=== PATIENT | female | born 2000 | race Caucasian/White ===

== ENCOUNTER 2019-10-18 20:51 | Emergency (ER) | payer BC ==
[2019-10-18 22:02] LABS: BLOOD UREA NITROGEN,BUN 10 mg/dL (7.0-18.0); CARBON DIOXIDE,CO2 20.8 mmol/L (21.0-32.0); CHLORIDE,CL 103 mmol/L (98-107); GLUCOSE RANDOM 214 mg/dL (74-106); POTASSIUM,K 4.3 mmol/L (3.5-5.1); SODIUM,NA 139 mmol/L (136-145)
--- NOTE | 2019-10-18 23:05 | CT ---
INDICATION: Headache TECHNIQUE: CT head without contrast. COMPARISON: None. FINDINGS: CSF spaces: Within normal limits for age. Brain parenchyma: The sanders-white differentiation is normal. No sign of mass, hemorrhage, or midline shift. Skull base and calvarium: The visualized paranasal sinuses and mastoid air cells demonstrate no acute or significant findings. The visualized orbits are grossly unremarkable. No skull fractures. IMPRESSION: Unremarkable noncontrast head CT. Please note that all CT scans at this facility use dose modulation, iterative reconstruction, and/or weight-based dosing when appropriate to reduce radiation dose to as low as reasonably achievable. Dictated by Ken Angel MD @ Oct 18 2019 11:02PM Signed by Dr. Ken Angel @ Oct 18 2019 11:04PM
--- NOTE | 2019-10-18 23:22 | EDM.PDOC ---
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 Patient states that her breasts have been expressing fluid and her mother told her that she might have an ectopic . Patient has had negative test within the last 24 hours. Patient has a chronic gastritis. Onset: Today Duration: Day(s):, Intermittent Location: Reports: Other (Patient states that she has breast discharge history of reflux) Quality: Reports: Ache Severity: Mild Improves with: Reports: None Worsens with: Reports: None Associated Symptoms: Reports: No Other Symptoms Lower Abdomen Pain Score (Numeric/FACES): 5 - Related Data Allergies Allergy/AdvReac Type Severity Reaction Status Date / Time amoxicillin Allergy Hives Verified 10/18/19 21:13 Home Meds: Home Meds Insulin Aspart (Niacinamide) [Fiasp Penfill 100 Unit/ml Cart] 100 units SQ DAILY 10/18/19 [History] Insulin Degludec [Tresiba] 100 units SQ DAILY 10/18/19 [History] Lisinopril [Zestril] 2.5 mg PO DAILY 10/18/19 [History] Metoclopramide HCl 10 mg PO DAILY 10/18/19 [History] atorvaSTATin Calcium [Atorvastatin Calcium] 40 mg PO DAILY 10/18/19 [History] Past Medical History Gastrointestinal History: Reports: Other (See Below) Other Gastrointestinal History: gastorparesis Endocrine/Metabolic History: Reports: Diabetes, Type I - Past Surgical History GI Surgical History: Reports: None Social & Family History - Family History Family Medical History: Noncontributory - Tobacco Use Smoking Status *Q: Never Smoker Second Hand Smoke Exposure: No - Caffeine Use Caffeine Use: Reports: Coffee - Recreational Drug Use Recreational Drug Use: No ED ROS GENERAL - Review of Systems Review Of Systems: See Below Constitutional: Reports: No Symptoms HEENT: Reports: No Symptoms Respiratory: Reports: No Symptoms Cardiovascular: Reports: No Symptoms Endocrine: Reports: No Symptoms GI/Abdominal: Reports: No Symptoms, Other (Reflux) : Reports: No Symptoms Musculoskeletal: Reports: No Symptoms Skin: Reports: No Symptoms Neurological: Reports: No Symptoms Psychiatric: Reports: No Symptoms Hematologic/Lymphatic: Reports: No Symptoms Immunologic: Reports: No Symptoms Free Text/Narrative/Comment: History of breast discharge ED EXAM, GI/ABD - Physical Exam Exam: See Below Exam Limited By: No Limitations General Appearance: Alert, WD/WN, No Apparent Distress Eyes: Bilateral: Normal Appearance Ears: Normal External Exam, Normal Canal, Hearing Grossly Normal, Normal TMs Nose: Normal Inspection, Normal Mucosa Throat/Mouth: Normal Inspection, Normal Lips Head: Atraumatic, Normocephalic Neck: Normal Inspection, Supple, Non-Tender Respiratory/Chest: No Respiratory Distress, Lungs Clear, Normal Breath Sounds, No Accessory Muscle Use, Chest Non-Tender Cardiovascular: Normal Peripheral Pulses, Regular Rate, Rhythm GI/Abdominal Exam: Normal Bowel Sounds, Soft, Non-Tender, No Distention Neurological: Alert, Oriented, CN II-XII Intact, Normal Reflexes Psychiatric: Normal Affect, Normal Mood Skin Exam: Warm, Dry, Intact Lymphatic: No Adenopathy Course - Vital Signs Text/Narrative:: She presented to the emergency room with a history of discharge from her breast thinking she had an ectopic . On exam patient had no evidence of discharge when she expressed her breast. Patient had no abdominal pain on exam no pelvic pain on exam. CT scan of the head was performed to rule out possible pituitary tumor was negative patient's labs were normal. She will be discharged home to follow-up with her primary care physician instructed to remain on her medications for reflux and to follow with her primary care physician. That was positive patient did have a leukocytosis of 16,000 unknown reason why. Last Recorded V/S: Last Vital Signs Temp 97.4 F 10/18/19 21:19 Pulse 88 10/18/19 21:19 Resp 18 10/18/19 21: BP 144/97 H 10/18/19 21: Pulse Ox 97 10/18/19 21:19 - Orders/Labs/Meds Labs: Laboratory Tests 10/18/19 10/18/19 10/18/19 Range/Units 21:30 21:30 21:35 WBC 16.49 H (4.0-11.0) K/uL RBC 4.96 (4.30-5.90) M/uL Hgb 14.0 (12.0-16.0) g/dL Hct 43.4 (36.0-46.0) % MCV 87.5 (80.0-98.0) fL MCH 28.2 (27.0-32.0) pg MCHC 32.3 (31.0-37.0) g/dL RDW Std Deviation 39.5 (28.0-62.0) fl RDW Coeff of Vamsi 12 (11.0-15.0) % Plt Count 272 (150-400) K/uL MPV 11.50 (7.40-12.00) fL Nucleated RBC % 0.0 /100WBC Nucleated RBCs # 0 K/uL Sodium 139 (136-145) mmol/L Potassium 4.3 (3.5-5.1) mmol/L Chloride 103 (98-107) mmol/L Carbon Dioxide 20.8 L (21.0-32.0) mmol/L BUN 10 (7.0-18.0) mg/dL Creatinine 0.6 (0.6-1.0) mg/dL Est Cr Clr Drug Dosing 107.43 mL/min Estimated GFR (MDRD) > 60.0 ml/min Glucose 214 H (74-106) mg/dL Calcium 9.1 (8.5-10.1) mg/dL Total Bilirubin 0.5 (0.2-1.0) mg/dL AST 26 (15-37) IU/L ALT 28 (14-63) IU/L Alkaline Phosphatase 113 (46-116) U/L Total Protein 7.4 (6.4-8.2) g/dL Albumin 3.8 (3.4-5.0) g/dL Globulin 3.6 (2.6-4.0) g/dL Albumin/Globulin Ratio 1.1 (0.9-1.6) Urine HCG, Qual NEGATIVE (NEGATIVE) Departure - Departure Time of Disposition: 23:28 Disposition: Home, Self-Care 01 Condition: Good Clinical Impression: Leukocytosis, unspecified - Discharge Information Additional Instructions: 1. Patient is to follow-up with her primary care physician. Return to the emergency room any severe pain. Patient informed that she does not have an ectopic . Sepsis Event Note - Evaluation Sepsis Screening Result: No Definite Risk - Focused Exam Vital Signs: Vital Signs Temp Pulse Resp BP Pulse Ox 10/18/19 21:19 97.4 F 88 18 144/97 H 97 Date Exam was Performed: 10/18/19 Time Exam was Performed: 23:17
== END 2019-10-18 23:39 | disposition home or self-care (01) ==
LOC: MW.ED 20:51
DX: D72.829 Elevated white blood cell count, unspecified (principal); E10.10 Type 1 diabetes mellitus with ketoacidosis without coma; Z79.899 Other long term (current) drug therapy; Z88.0 Allergy status to penicillin
CPT/HCPCS: 36415; 70450; 70450-26; 80053; 81025; 85027; 99282; 99284-25

== ENCOUNTER 2021-07-16 06:16 | Inpatient (IN) | payer BC ==
[2021-07-16] MEDS ORDERED: Butorphanol 1 MG/ML SDV IVPUSH PRN (07:01)
[2021-07-16] MEDS ORDERED: Methylergonovine 0.2 MG/1 ML Amp IM PRN (07:01)
[2021-07-16] MEDS ORDERED: Water For Irrigation,Sterile 1,000 ML Container IRR PRN (07:01)
[2021-07-16] MEDS ORDERED: Tranexamic Acid 1,000 MG in Sodium Chloride 0.9% 100 ML IV PRN (07:01)
[2021-07-16] MEDS ORDERED: Carboprost Tromethamine 250 MCG/1 ML Amp IM PRN (07:01)
[2021-07-16] MEDS ORDERED: Sodium Chloride 0.9% 2.5 ML Syringe FLUSH PRN (07:01)
[2021-07-16] MEDS ORDERED: Sodium Chloride 0.9% 20 ML SDV IV PRN (07:01)
[2021-07-16] MEDS ORDERED: Sodium Chloride 0.9% 10 ML Syringe FLUSH PRN (07:01)
[2021-07-16] MEDS ORDERED: Misoprostol 200 MCG Tab PO PRN (07:01)
[2021-07-16] MEDS ORDERED: Nalbuphine 10 MG/1 ML Vial IVPUSH PRN (07:01)
[2021-07-16] MEDS ORDERED: Lidocaine 1% 50 ML MDV INJECT PRN (07:01)
[2021-07-16] MEDS ORDERED: Morphine 4 MG/ML VIAL IVPUSH ONE (07:05)
[2021-07-16] MEDS ORDERED: Oxytocin/0.9 % Sodium Chloride 30 UNIT/500 ML BAG IV SCH (07:15)
[2021-07-16] MEDS ORDERED: Lactated Ringers 1,000 ML IV SCH (07:15)
[2021-07-16] MEDS ORDERED: Lidocaine 1% 20 ML MDV ONE ×2 (07:32→18:14)
[2021-07-16] MEDS ORDERED: Acetaminophen 500 MG Tab PO PRN (08:25)
[2021-07-16] MEDS ORDERED: Bisacodyl 10 MG Supp RECTAL PRN (08:25)
[2021-07-16] MEDS ORDERED: Benzocaine/Menthol 20%-0.5% Spray 78 GM Cannister TOP PRN (08:25)
[2021-07-16] MEDS ORDERED: Witch Hazel Medicated Pads 40/Jar TOP PRN (08:25)
[2021-07-16] MEDS ORDERED: Ibuprofen 400 MG Tab PO PRN (08:25)
[2021-07-16] MEDS ORDERED: Docusate Sodium 100 MG Cap PO PRN (08:25)
[2021-07-16] MEDS ORDERED: Lanolin 100% Cream 7 GM Tube TOP PRN (08:25)
[2021-07-16] MEDS ORDERED: oxyCODONE 5 MG Tab PO PRN (08:25)
--- NOTE | 2021-07-16 08:32 | PCM.LDHP ---
L&D History of Present Illness - General Date of Service: 07/16/21 Admit Problem/Dx: Patient Status Order with Admit Dx/Problem 07/16/21 07:01 Patient Status [ADT] Routine 07/16/21 08:25 Patient Status [ADT] Routine Admission Diagnosis/Problem Admission Diagnosis/Problem Source of Information: Patient History Limitations: Reports: No Limitations - History of Present Illness Introduction:: 21 year old G1 now P1 female presented to Labor and Delivery by EMS at 0640 after delivering at home at 32w6d gestation. Patient had previously presented to Labor and Delivery on the evening of 07/15/2021 with nausea/vomiting and irregular contractions. Her EDC was 09/04/2021. FHTs were category 1 and her tocomotor showed irritability. A sterile speculum exam was performed with no abnormal findings. FFN and Affirm vaginal swabs were obtained and resulted negative. Cervical exam was performed and cervix noted to be closed, thick and high. Urine analysis was also obtained and was negative for infection. She received IVF, Zofran and PO Vistiril. After a period of observation, the patient's symptoms improved and she was discharged to home in stable condition with labor precautions. At about 0530 this morning the patient called Labor and Delivery stating that her pelvic pain was increasing and she was getting into the bathtub. Per the patient, she continued to feel increased pressure and had a strong contraction at about 0615. Her infant delivered in the tub about one minute later. The patient called EMS who arrived shortly thereafter. States that her placenta delivered spontaneously about 5 minutes after the was born. Per EMS, initial score was 5, improved on arrival to nursery and was evaluated by senior business analyst. weight is 2580 grams. The is stable and will be transferred to [facility] for NICU admission. Patient received 30mg of IV Pitocin upon arrival to labor and delivery along with 4mg IV morphine for pain control. Perineal inspection was performed and a 1st degree perineal laceration was noted with brisk bleeding at the site. This was repair with 2-0 Vicryl. Weighed blood loss from the time of EMS transfer to evaluation on labor and delivery was 680cc. Placenta was evaluated and appears intake. Will be sent to pathology for further evaluation. The was complicated by Type 1 DM. Patient has been taking 28u of Tresiba at night and Fiasp with meals. Last blood glucose level this morning at 0630 was 180 per patient. She last took insulin at about 1730 last evening. Denies fever/chills, lightheadedness, dizziness or nausea at this time. - Related Data Allergies/Adverse Reactions: Allergies Allergy/AdvReac Type Severity Reaction Status Date / Time amoxicillin Allergy Hives Verified 07/16/21 07:01 Home Medications: Home Meds Insulin Aspart (Niacinamide) [Fiasp Penfill 100 Unit/ml Cart] 100 units SQ DAILY 10/18/19 [History] Insulin Degludec [Tresiba] 100 units SQ DAILY 10/18/19 [History] Metoclopramide HCl 10 mg PO DAILY 10/18/19 [History] atorvaSTATin Calcium [Atorvastatin Calcium] 40 mg PO DAILY 10/18/19 [History] lisinopriL [Zestril] 2.5 mg PO DAILY 10/18/19 [History] Past Medical History Gastrointestinal History: Reports: Other (See Below) Other Gastrointestinal History: gastorparesis Endocrine/Metabolic History: Reports: Diabetes, Type I - Past Surgical History GI Surgical History: Reports: None Social & Family History - Family History Family Medical History: No Pertinent Family History - Caffeine Use Caffeine Use: Reports: Coffee H&P Review of Systems - Review of Systems: Review Of Systems: See Below General: Reports: No Symptoms HEENT: Reports: No Symptoms Pulmonary: Reports: No Symptoms Cardiovascular: Reports: No Symptoms Gastrointestinal: Reports: Abdominal Pain Musculoskeletal: Reports: Back Pain Skin: Reports: No Symptoms Psychiatric: Reports: No Symptoms Neurological: Reports: No Symptoms Hematologic/Lymphatic: Reports: No Symptoms Immunologic: Reports: No Symptoms L&D Exam - Exam Exam: See Below - Vital Signs Weight: 390 lb 3.491 oz - Exam General: Alert Lungs: Clear to Auscultation, Normal Respiratory Effort Cardiovascular: Regular Rate, Regular Rhythm GI/Abdominal Exam: Soft, Non-Tender, Other (Fundus firm, below the umbilicus) Genitourinary: Vaginal bleeding, Other (first degree perineal laceration) Back Exam: Normal Inspection Extremities: Normal Range of Motion, Non-Tender, Pedal Edema (1+) Skin: Warm, Dry, Intact Psychiatric: Normal Mood Problem List Initiated/Reviewed/Updated: Yes Orders Last 24hrs: Active Orders 24 hr Category Date Time Status Patient Status [ADT] Routine ADT 07/16/21 07:01 Active Patient Status [ADT] Routine ADT 07/16/21 08:25 Ordered May Shower [RC] ASDIRECTED Care 07/16/21 07:01 Active May Shower [RC] ASDIRECTED Care 07/16/21 08:25 Ordered Notify Provider [RC] PRN Care 07/16/21 07:01 Active Up ad Sarai [RC] ASDIRECTED Care 07/16/21 07:01 Active Up ad Sarai [RC] ASDIRECTED Care 07/16/21 08:25 Ordered Vital Signs [RC] PER UNIT ROUTINE Care 07/16/21 07:01 Active Vital Signs [RC] PER UNIT ROUTINE Care 07/16/21 08:25 Ordered CBC W/O DIFF,HEMOGRAM [HEME] Routine Lab 07/16/21 07:43 Received CORONAVIRUS COVID-19 MADELYN [MOLEC] Routine Lab 07/16/21 08:01 Ordered HEMOGLOBIN/HEMATOCRIT,HH [HEME] Timed Lab 07/17/21 05:11 Ordered RPR (SYPHILIS SERO) W/ RFLX [REF] Routine Lab 07/16/21 07:43 Received TYPE AND SCREEN [BBK] Routine Lab 07/16/21 07:43 Received Acetaminophen [Tylenol Extra Strength] Med 07/16/21 08:25 Ordered 1,000 mg PO Q4H PRN Acetaminophen [Tylenol Extra Strength] Med 07/16/21 08:25 Ordered 500 mg PO Q4H PRN Benzocaine/Menthol [Dermoplast Pain Relief 20%-0.5% Med 07/16/21 08:25 Ordered Acworth] 78 gm TOP ASDIRECTED PRN Butorphanol [Stadol] Med 07/16/21 07:01 Active 1 mg IVPUSH Q1H PRN Carboprost Tromethamine [Hemabate DS] Med 07/16/21 07:01 Active 250 mcg IM ASDIRECTED PRN Docusate Sodium [Colace] Med 07/16/21 08:25 Ordered 100 mg PO Q12H PRN Ibuprofen [Motrin] Med 07/16/21 08:25 Ordered 400 mg PO Q4H PRN Ibuprofen [Motrin] Med 07/16/21 08:25 Ordered 800 mg PO Q6H PRN Lactated Ringers [Ringers, Lactated] 1,000 ml Med 07/16/21 07:15 Active IV ASDIRECTED Lanolin [Lansinoh HPA] Med 07/16/21 08:25 Ordered See Dose Instructions TOP ASDIRECTED PRN Lidocaine 1% [Xylocaine 1%] Med 07/16/21 07:01 Active 50 ml INJECT ONETIME PRN Methylergonovine [Methergine] Med 07/16/21 07:01 Active 0.2 mg IM ASDIRECTED PRN Nalbuphine [Nubain] Med 07/16/21 07:01 Active 10 mg IVPUSH Q1H PRN Oxytocin/0.9 % Sodium Chloride [Oxytocin 30 Unit in NS Med 07/16/21 07:15 Active 0.9% 500 ML Premix] 30 unit in 500 ml IV TITRATE Sodium Chloride 0.9% [Normal Saline] Med 07/16/21 07:01 Active 10 ml IV ASDIRECTED PRN Sodium Chloride 0.9% [Saline Flush] Med 07/16/21 07:01 Active 10 ml FLUSH ASDIRECTED PRN Sodium Chloride 0.9% [Saline Flush] Med 07/16/21 07:01 Active 2.5 ml FLUSH ASDIRECTED PRN Tranexamic Acid [Cyklokapron] 1,000 mg Med 07/16/21 07:01 Active Sodium Chloride 0.9% [Normal Saline] 100 ml IV ONETIME Water For Irrigation,Sterile [Sterile Water for Med 07/16/21 07:01 Active Irrigation] 1,000 ml IRR ASDIRECTED PRN bisacodyL [Dulcolax] Med 07/16/21 08:25 Ordered 10 mg RECTAL ONETIME PRN miSOPROStoL [Cytotec] Med 07/16/21 07:01 Active 200 mcg PO ONETIME PRN oxyCODONE Med 07/16/21 08:25 Ordered 5 mg PO Q2H PRN witch Lety [Tucks] Med 07/16/21 08:25 Ordered 1 pad TOP ASDIRECTED PRN Assess Lochia [WOMSER] Per Unit Routine Oth 07/16/21 08:25 Ordered Assess Uterine Involution [WOMSER] Per Unit Routine Oth 07/16/21 08:25 Ordered Scalp Electrode [WOMSER] Per Unit Routine Oth 07/16/21 07:01 Ordered Peripheral IV Discontinue [OM.PC] Routine Oth 07/16/21 08:25 Ordered Peripheral IV Insertion Adult [OM.PC] Routine Oth 07/16/21 07:01 Ordered Resuscitation Status Routine Resus Stat 07/16/21 07:01 Ordered Medication Orders Butorphanol Tartrate (Butorphanol 1 Mg/Ml Sdv) 1 mg IVPUSH Q1H PRN PRN Reason: Pain (severe 7-10) Carboprost Tromethamine (Carboprost Tromethamine 250 Mcg/1 Ml Amp) 250 mcg IM ASDIRECTED PRN PRN Reason: Post Hemorrhage Oxytocin/Sodium Chloride (Oxytocin 30 Unit In Ns 0.9% 500 Ml Premix) 30 unit in 500 mls @ 999 mls/hr IV TITRATE [facility] Last Admin: 07/16/21 07:10 Dose: 999 mls/hr Documented by: EDIS Tranexamic Acid 1,000 mg/ (Sodium Chloride) 110 mls @ 660 mls/hr IV ONETIME PRN PRN Reason: Bleeding Lactated Ringer's (Ringers, Lactated) 1,000 mls @ 150 mls/hr IV ASDIRECTED [facility] Last Admin: 07/16/21 06:50 Dose: 150 mls/hr Documented by: EDIS Lidocaine HCl (Lidocaine 1% 50 Ml Mdv) 50 ml INJECT ONETIME PRN PRN Reason: Laceration repair Methylergonovine Maleate (Methylergonovine 0.2 Mg/1 Ml Amp) 0.2 mg IM ASDIRECTED PRN PRN Reason: Post Hemorrhage Misoprostol (Misoprostol 200 Mcg Tab) 200 mcg PO ONETIME PRN PRN Reason: Post Hemorrhage Nalbuphine HCl (Nalbuphine 10 Mg/1 Ml Vial) 10 mg IVPUSH Q1H PRN PRN Reason: Pain (severe 7-10) Sodium Chloride (Sodium Chloride 0.9% 10 Ml Syringe) 10 ml FLUSH ASDIRECTED PRN PRN Reason: Keep Vein Open Sodium Chloride (Sodium Chloride 0.9% 2.5 Ml Syringe) 2.5 ml FLUSH ASDIRECTED PRN PRN Reason: Keep Vein Open Sodium Chloride (Sodium Chloride 0.9% 20 Ml Sdv) 10 ml IV ASDIRECTED PRN PRN Reason: IV Use Sterile Water (Water For Irrigation,Sterile 1,000 Ml Container) 1,000 ml IRR ASDIRECTED PRN PRN Reason: delivery Assessment/Plan Comment:: 21 year old PPD0 s/p precipitous home delivery at 32w6d gestation Routine cares * Rh positive * Rubella NON-immue, candidate for MMR * PO pain medication ordered PRN * Diabetic diet as tolerated * Encourage ambulation and fluid intake when able * Plans to pump for baby in NICU Type 1 DM * QID testing * Continue home medications - Tresiba 28u HS, will decrease to 14u - Friasp adjusted with meals (currently BS -120/20) * Diabetic diet * 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 Patient desires to be transferred with to [place], [place], if able today. Discharge precautions reviewed, awaiting transfer team.
[2021-07-16] MEDS: Ibuprofen 800 MG Tab PO PRN ×2 (11:18→21:38)
[2021-07-16] MEDS: Acetaminophen 500 MG Tab PO PRN ×2 (11:19→19:00)
[2021-07-16] MEDS: FIASP SUBCUT SCH (13:47)
[2021-07-16] MEDS ORDERED: INSULIN DEGLUDEC SUBCUT SCH (21:00)
[2021-07-17] MEDS: FIASP SUBCUT SCH (07:28)
[2021-07-17] MEDS: Ibuprofen 800 MG Tab PO PRN (07:29)
--- NOTE | 2021-07-17 09:31 | PCM.PNPP ---
- General Info Date of Service: 07/17/21 Functional Status: Reports: Pain Controlled, Tolerating Diet, Ambulating, Urinating (Bleeding light. Has decreased carb ratio and long active insulin to half of dose. Glucose has been 60-180s. Had episode of dizziness yesterday, improved today. ), Other - Review of Systems General: Reports: No Symptoms HEENT: Reports: No Symptoms Pulmonary: Reports: No Symptoms Cardiovascular: Reports: No Symptoms Gastrointestinal: Reports: No Symptoms Genitourinary: Reports: No Symptoms Musculoskeletal: Reports: No Symptoms Skin: Reports: No Symptoms Neurological: Reports: No Symptoms Psychiatric: Reports: No Symptoms - Patient Data Vital Signs - Most Recent: Last Vital Signs Temp 36.2 C 07/17/21 08:00 Pulse 90 07/17/21 08:00 Resp 18 07/17/21 08:00 BP 131/88 07/17/21 08:00 Pulse Ox 95 07/17/21 08:00 Weight - Most Recent: 177 lb Lab Results - Last 24 Hours: Laboratory Results - last 24 hr 07/16/21 07/16/21 07/16/21 Range/Units 07:43 08:35 10:22 Hgb (12.0-16.0) g/dL Hct (36.0-46.0) % POC Glucose 165 H (70-99) mg/dL SARS-CoV-2 RNA (MADELYN) NEGATIVE (NEGATIVE) Blood Type O POSITIVE Antibody Screen NEGATIVE 07/16/21 07/16/21 07/17/21 Range/Units 13:38 17:44 05:37 Hgb 9.4 L (12.0-16.0) g/dL Hct 28.8 L (36.0-46.0) % POC Glucose 171 H 63 L (70-99) mg/dL SARS-CoV-2 RNA (MADELYN) (NEGATIVE) Blood Type Antibody Screen 07/17/21 Range/Units 06:26 Hgb (12.0-16.0) g/dL Hct (36.0-46.0) % POC Glucose 184 H (70-99) mg/dL SARS-CoV-2 RNA (MADELYN) (NEGATIVE) Blood Type Antibody Screen Med Orders - Current: Current Medications Acetaminophen (Acetaminophen 500 Mg Tab) 500 mg PO Q4H PRN PRN Reason: Pain (mild 1-3) Acetaminophen (Acetaminophen 500 Mg Tab) 1,000 mg PO Q4H PRN PRN Reason: Pain (mild 1-3) Last Admin: 07/16/21 19:00 Dose: 1,000 mg Documented by: Benzocaine/Menthol (Benzocaine/Menthol 20%-0.5% [place] 78 Gm Cannister) 78 gm TOP ASDIRECTED PRN PRN Reason: Perineal Comfort Measure Last Admin: 07/16/21 10:33 Dose: 1 canister Documented by: Bisacodyl (Bisacodyl 10 Mg Supp) 10 mg RECTAL ONETIME PRN PRN Reason: Constipation Butorphanol Tartrate (Butorphanol 1 Mg/Ml Sdv) 1 mg IVPUSH Q1H PRN PRN Reason: Pain (severe 7-10) Carboprost Tromethamine (Carboprost Tromethamine 250 Mcg/1 Ml Amp) 250 mcg IM ASDIRECTED PRN PRN Reason: Post Hemorrhage Docusate Sodium (Docusate Sodium 100 Mg Cap) 100 mg PO Q12H PRN PRN Reason: Constipation Emollient Ointment (Lanolin 100% Cream 7 Gm Tube) 0 gm TOP ASDIRECTED PRN PRN Reason: Sore Nipples Last Admin: 07/16/21 10:34 Dose: 1 tube Documented by: Oxytocin/Sodium Chloride (Oxytocin 30 Unit In Ns 0.9% 500 Ml Premix) 30 unit in 500 mls @ 999 mls/hr IV TITRATE [facility] Last Admin: 07/16/21 07:10 Dose: 999 mls/hr Documented by: Tranexamic Acid 1,000 mg/ (Sodium Chloride) 110 mls @ 660 mls/hr IV ONETIME PRN PRN Reason: Bleeding Lactated Ringer's (Ringers, Lactated) 1,000 mls @ 150 mls/hr IV ASDIRECTED [facility] Last Admin: 07/16/21 06:50 Dose: 150 mls/hr Documented by: Ibuprofen (Ibuprofen 400 Mg Tab) 400 mg PO Q4H PRN PRN Reason: Pain (mild 1-3) Ibuprofen (Ibuprofen 800 Mg Tab) 800 mg PO Q6H PRN PRN Reason: Cramping Last Admin: 07/17/21 07:29 Dose: 800 mg Documented by: Lidocaine HCl (Lidocaine 1% 50 Ml Mdv) 50 ml INJECT ONETIME PRN PRN Reason: Laceration repair Methylergonovine Maleate (Methylergonovine 0.2 Mg/1 Ml Amp) 0.2 mg IM ASDIRECTED PRN PRN Reason: Post Hemorrhage Misoprostol (Misoprostol 200 Mcg Tab) 200 mcg PO ONETIME PRN PRN Reason: Post Hemorrhage Nalbuphine HCl (Nalbuphine 10 Mg/1 Ml Vial) 10 mg IVPUSH Q1H PRN PRN Reason: Pain (severe 7-10) Oxycodone HCl (Oxycodone 5 Mg Tab) 5 mg PO Q2H PRN PRN Reason: Pain (severe 7-10) Treisba (Insulin (Degludec)) 14 each SUBCUT BEDTIME CHARANJIT Fiasp (Insulin (Aspart)) 0 each SUBCUT ASDIRECTED CHARANJIT Last Admin: 07/17/21 07:28 Dose: 8 each Documented by: Sodium Chloride (Sodium Chloride 0.9% 10 Ml Syringe) 10 ml FLUSH ASDIRECTED PRN PRN Reason: Keep Vein Open Sodium Chloride (Sodium Chloride 0.9% 2.5 Ml Syringe) 2.5 ml FLUSH ASDIRECTED PRN PRN Reason: Keep Vein Open Sodium Chloride (Sodium Chloride 0.9% 20 Ml Sdv) 10 ml IV ASDIRECTED PRN PRN Reason: IV Use Sterile Water (Water For Irrigation,Sterile 1,000 Ml Container) 1,000 ml IRR ASDIRECTED PRN PRN Reason: delivery Witch Ruby (Witch Ruby Medicated Pads 40/Jar) 1 pad TOP ASDIRECTED PRN PRN Reason: comfort care Last Admin: 07/16/21 10:33 Dose: 1 container Documented by: Discontinued Medications Lidocaine HCl (Lidocaine 1% 20 Ml Mdv) Confirm Administered Dose 20 ml .ROUTE .STK-MED ONE Stop: 07/16/21 07:33 Last Admin: 07/16/21 07:45 Dose: 20 ml Documented by: Lidocaine HCl (Lidocaine 1% 20 Ml Mdv) Confirm Administered Dose 20 ml .ROUTE .STK-MED ONE Stop: 07/16/21 18:15 Morphine Sulfate (Morphine 4 Mg/Ml Vial) 4 mg IVPUSH ONETIME ONE Stop: 07/16/21 07:06 Last Admin: 07/16/21 07:14 Dose: 4 mg Documented by: - Infant Interaction Infant Disposition, : Not Applicable Feeding: Other (see below) (Pumping) Support Person: - Recovery Exam Fundal Tone: Firm Fundal Level: At Umbilicus Fundal Placement: Midline Lochia Amount: Scant Lochia Color: Rubra/Red - Exam General: Alert, Oriented, Cooperative, No Acute Distress HEENT: Pupils Equal, Pupils Reactive, EOMI Neck: Supple, Trachea Midline, No JVD Lungs: Normal Respiratory Effort GI/Abdominal Exam: Soft, Non-Tender, No Organomegaly, No Distention Extremities: Normal Inspection, Normal Range of Motion, Non-Tender, No Pedal Edema Skin: Warm, Dry, Intact Wound/Incisions: Healing Well Neurological: No New Focal Deficit Psy/Mental Status: Alert, Normal Affect, Normal Mood - Problem List Review Problem List Initiated/Reviewed/Updated: Yes - My Orders Last 24 Hours: My Active Orders 07/16/21 12:45 Patient's Own Medication [Ptom] 0 each SUBCUT ASDIRECTED 07/16/21 21:00 Patient's Own Medication [Ptom] 14 each SUBCUT BEDTIME 07/17/21 09:30 Ready for Discharge [RC] PER UNIT ROUTINE - Assessment Assessment:: 21yo PPD1 s/p delivery at 32w6d. Stable and recovering well. - Plan Plan:: Routine cares * Rh positive * Rubella NON-immue, candidate for MMR * PO pain medication ordered PRN * Diabetic diet as tolerated * Encourage ambulation and fluid intake when able * Baby in NICU in [place], reports is doing well Type 1 DM * Glucose 63-187 * Continue home medications - Tresiba 28u HS, will decrease to 14u - Friasp adjusted with meals (currently BS -120/20) * Diabetic diet * Patient to follow up with audio video mechanic in [facility] Dispo: stable. Plan for discharge home today. Discharge precautions reviewed.
[2021-07-17] MEDS ORDERED: Measles, Mumps & Rubella Vaccine 0.5 ML SDV SUBCUT ONE (12:00)
== END 2021-07-17 10:30 | disposition home or self-care (01) | DRG 561 ==
LOC: MW.OB 06:16
PROVIDERS: ADMIT Obstetrics & Gynecology; ATTEND Obstetrics & Gynecology
PROC: 0HQ9XZZ Repair Perineum Skin, External Approach (ICD-10-PCS; principal; 2021-07-16)
DX: Z39.0 Encounter for care and examination of mother immediately after delivery (principal); O24.03 Pre-existing type 1 diabetes mellitus, in the puerperium; O70.0 First degree perineal laceration during delivery; Z20.822 Contact with and (suspected) exposure to COVID-19; Z88.1 Allergy status to other antibiotic agents
CPT/HCPCS: 36415; 59300; 59414; 82947; 85014; 85018; 85027; 86592; 86850; 86900; 86901; A9270-GY; J2270; J2590; J7120; U0002

== ENCOUNTER 2024-04-04 16:02 | Observation (INO) | payer BC ==
[2024-04-04] MEDS ORDERED: hydrALAZINE 10 MG Tab ONE (16:10)
[2024-04-04] MEDS: NIFEdipine 10 MG Cap ONE (16:15)
[2024-04-04] MEDS ORDERED: Carboprost Tromethamine 250 MCG/1 mL Vial IM PRN (16:22)
[2024-04-04] MEDS ORDERED: Sodium Chloride 0.9% 20 ML SDV IV PRN (16:22)
[2024-04-04] MEDS ORDERED: Lidocaine 1% 50 ML MDV INJECT PRN (16:22)
[2024-04-04] MEDS ORDERED: Butorphanol 2 MG/ML SDV IVPUSH PRN (16:22)
[2024-04-04] MEDS ORDERED: Misoprostol 200 MCG Tab PO PRN (16:22)
[2024-04-04] MEDS ORDERED: Sodium Chloride 0.9% 2.5 ML Syringe FLUSH PRN (16:22)
[2024-04-04] MEDS ORDERED: Sodium Chloride 0.9% 10 ML Syringe FLUSH PRN (16:22)
[2024-04-04] MEDS ORDERED: Water For Irrigation,Sterile 1,000 ML Container IRR PRN (16:22)
[2024-04-04] MEDS ORDERED: Tranexamic Acid IN NACL,ISO-OS 1,000 MG in Premix Bag 1 BAG IV PRN (16:22)
[2024-04-04] MEDS ORDERED: Methylergonovine 0.2 MG/1 ML Amp IM PRN (16:22)
[2024-04-04] MEDS ORDERED: Calcium Gluconate 10% 1 GM/10 ML SDV IV PRN (16:22)
[2024-04-04] MEDS ORDERED: Oxytocin/0.9 % Sodium Chloride 30 UNIT/500 ML BAG IV SCH (16:30)
[2024-04-04 16:38] LABS: HEMOGLOBIN 12.2 g/dL (12.0-16.0); MEAN CORPUSCULAR HGB CONC 32.1 g/dL (32.0-36.0); MEAN CORPUSCULAR VOLUME 90.3 fL (83.0-99.0); MEAN PLATELET VOLUME 13.5 fL (9.4-12.3); PLATELET COUNT,PLT 172 K/uL (150-400); RED BLOOD CELL COUNT 4.21 M/uL (4.10-5.30); WHITE BLOOD CELL COUNT,WBC 13.63 K/uL (3.9-11.3)
[2024-04-04] MEDS: hydrALAZINE 20 MG/ML SDV IVPUSH PRN (16:45)
[2024-04-04] MEDS: Magnesium Sulfate/Water 4 GM in Premix Bag 1 BAG IV ONE (16:46)
[2024-04-04] MEDS: Lactated Ringers 1,000 ML IV SCH (16:46)
[2024-04-04] MEDS: Magnesium Sulfate/Water 20 GM/500 ML BAG IV SCH (16:47)
[2024-04-04] MEDS: Betamethasone Acetate/Betamethasone Sod Phosphate 6 MG/1 ML MDV IM STA (17:02)
[2024-04-04] MEDS: Ondansetron 4 MG/2 ML SDV IVPUSH PRN (17:03)
[2024-04-04 17:06] LABS: A/G RATIO 0.4 (0.9-1.6); ALBUMIN 1.9 g/dL (3.4-5.0); BILIRUBIN TOTAL 0.4 mg/dL (0.2-1.0); CALCIUM 9.2 mg/dL (8.5-10.1); CARBON DIOXIDE,CO2 24.3 mmol/L (21.0-32.0); CREATININE 0.7 mg/dL (0.6-1.0); EST CRCL DRUG DOSING (CG) 88.25 mL/min; POTASSIUM,K 4.1 mmol/L (3.5-5.1); PROTEIN TOTAL,TP 6.5 g/dL (6.4-8.2); URIC ACID 4.7 mg/dL (2.6-7.2)
[2024-04-04 18:15] LABS: APPEARANCE,URINE SLT CLOUDY; BILIRUBIN,URINE NEGATIVE (NEGATIVE); COLOR,URINE YELLOW; GLUCOSE,URINE 100 mg/dL (NEGATIVE); KETONES,URINE 40 mg/dL (NEGATIVE); LEUKOCYTE ESTERASE,URINE NEGATIVE (NEGATIVE); NITRITE,URINE NEGATIVE (NEGATIVE); OCCULT BLOOD,URINE NEGATIVE (NEGATIVE); PH,URINE 6.5 (5.0-8.0); PROTEIN,URINE >=300 mg/dL (NEGATIVE); UROBILINOGEN,URINE 0.2 EU/dL (<2.0)
[2024-04-04 18:24] LABS: BACTERIA,URINE 1+ (NEGATIVE); EPITHELIAL CELLS,URINE MODERATE (NONE-FEW); RBC,URINE 0-2 (0-2/HPF)
[2024-04-04 18:49] LABS: CREATININE,URINE RAND 116.1 mg/dL
[2024-04-04 18:58] LABS: PROTEIN CREATININE RATIO,URINE 7.1
[2024-04-05 12:07] LABS: GROUP B STREP BY PCR NEGATIVE (NEGATIVE)
== END 2024-04-04 18:50 ==
LOC: MW.OBCHECK 16:02 → MW.OB 16:22
PROVIDERS: ADMIT Obstetrics & Gynecology; ATTEND Obstetrics & Gynecology
DX: O16.3 Unspecified maternal hypertension, third trimester (principal); O24.013 Pre-existing type 1 diabetes mellitus, in pregnancy, third trimester; O14.13 Severe pre-eclampsia, third trimester; O99.891 Other specified diseases and conditions complicating pregnancy; R51.9 Headache, unspecified; Z3A.33 33 weeks gestation of pregnancy; Z88.1 Allergy status to other antibiotic agents; Z79.4 Long term (current) use of insulin
CPT/HCPCS: 36415; 59025; 80053; 81001; 82570; 84156; 84550; 85027; 86592; 86850; 86900; 86901; 87653; 96365; 96372; 96375; 96376; A9270; G0378; J0360; J0702; J2405; J3475; J7120

== ENCOUNTER 2025-05-25 19:36 | Emergency (ER) | payer BC ==
[2025-05-25] MEDS: Ondansetron 4 MG/2 ML SDV IVPUSH ONE (20:03)
[2025-05-25] MEDS: diphenhydrAMINE 50 MG/ML SDV IVPUSH ONE (20:03)
[2025-05-25] MEDS: Ketorolac 30 MG/ML SDV IVPUSH ONE (20:03)
== END 2025-05-25 21:01 | disposition home or self-care (01) ==
LOC: MW.ED 19:36
DX: G43.909 Migraine, unspecified, not intractable, without status migrainosus (principal); J45.909 Unspecified asthma, uncomplicated; E10.9 Type 1 diabetes mellitus without complications; Z88.1 Allergy status to other antibiotic agents; Z79.4 Long term (current) use of insulin; Z79.899 Other long term (current) drug therapy
CPT/HCPCS: 96361; 96374; 96375; 99283; J1200; J1885; J2405; J2765; J7030